=== PATIENT | male | born 1985 | race Caucasian/White ===

== ENCOUNTER 2024-03-19 15:22 | Emergency (ER) | payer SELFPAY ==
[2024-03-19 15:30] VITALS: BP 124/80; PULSE 85; RESP 16; TEMP 36.3; O2SAT 97
[2024-03-19 15:40] VITALS: BP 124/80; PULSE 85; RESP 16; TEMP 36.3; O2SAT 97
--- NOTE | 2024-03-19 15:40 | ED.GENADULT ---
HPI - General Adult General Chief complaint: Dental/Oral Stated complaint: Sore Throat/Mouth Sore Time Seen by Provider: 03/19/24 15:41 Source: patient Mode of arrival: ambulatory Limitations: no limitations History of Present Illness HPI narrative: 38 yo M presents with c/o nasal congestion, soreness to nares, PND, mild cough for 2 to 3 days. Afebrile. Pt was recently released from retirement. Per pt the drinking water and water to wash hands came from a faucet that was also connected to the toilet. While pt was getting drinking water, it sprayed in his face and up his nose and hes concerned dirty toilet water is causing his sinus symptoms. Also states while looking in mirror today he noticed bump to roof of mouth. pt is a current everyday smoker. All systems reviewed and negative except as noted above. Related Data Allergies Allergy/AdvReac Type Severity Reaction Status Date / Time Penicillins Allergy Mild Unknown Verified 03/19/24 15:27 Review of Systems Review of Systems: CONSTITUTIONAL: Denies fever, chills, or sweats. EYES: Denies visual changes, redness, or discharge. ENT: Reports rhinorrhea, congestion. Denies sore throat, or otalgia. Reports sore to roof of mouth. CARDIOVASCULAR: Denies chest pain, palpitations, or edema. RESPIRATORY: Reports cough. Denies dyspnea. GASTROINTESTINAL: Denies abdominal pain, nausea, vomiting, or diarrhea. GENITOURINARY: Denies dysuria or hematuria. SKIN: Denies rash or itching. MUSCULOSKELETAL: Denies back pain, joint pain, or myalgia. NEUROLOGIC: Denies headache, numbness, or weakness. PSYCHIATRIC: Denies anxiety or depression. All other systems reviewed are negative, except as documented in HPI. PMFSH Comments At time of signature, agree with nursing past medical, surgical, social and family history. There is no relevant family history pertinent to the presenting complaint. Exam Narrative: GENERAL: This is a well-nourished, well-developed patient, in no apparent distress. HEAD: normocephalic, atraumatic. EYES: PERRL. Sclera clear/white. Vision is grossly intact. EARS: External ears normal, auditory canals clear and without drainage, TMs normal without perforation. Hearing grossly intact. NOSE: External nose normal with clear nasal drainage, mild congestion THROAT: Mucous membranes moist, clear postnasal drainage MOUTH: there is a hard swollen area to roof of mouth, approx. 1cm diameter with mild erythema. no fluctuance. no tenderness on palpation. NECK: Neck supple, non-tender without lymphadenopathy, masses or thyromegaly. CARDIOVASCULAR: Regular rate and rhythm without murmurs, gallops, or rubs. RESPIRATORY: Clear to auscultation. Breath sounds equal bilaterally. No wheezes, rales, or rhonchi. SKIN: warm, Dry, intact with no suspicious lesions or rash, good texture and turgor. NEURO: awake, alert, and oriented to person, place and time. There were no obvious focal neurologic abnormalities. EXTREMITIES: No joint tenderness, effusion, or edema noted. Course Course Level of Care: Express Care Visit Vital Signs Vital signs: Vital Signs Temperature 36.3 C L 03/19/24 15:30 Pulse Rate 85 03/19/24 15:30 Respiratory Rate 16 03/19/24 15:30 Blood Pressure 124/80 03/19/24 15:30 Pulse Oximetry 97 03/19/24 15:30 Oxygen Delivery Room Air 03/19/24 15:30 Temperature 36.3 C L 03/19/24 15:40 Pulse Rate 85 03/19/24 15:40 Respiratory Rate 16 03/19/24 15:40 Blood Pressure 124/80 03/19/24 15:40 Pulse Oximetry 97 03/19/24 15:40 Oxygen Delivery Room Air 03/19/24 15:40 reviewed Medical Decision Making MDM Narrative Medical decision making narrative: Patient is aware of diagnosis, understands and agrees to treatment plan. Anticipatory guidance given. Patient agrees to follow-up as directed and is aware of reasons to seek care at the emergency department. Portions of this record may have been created with voice recognition software will treat pt with abx due to concern for dirty toilet water. recommend pt follow up with his PCP if sore to roof of mouth is not improving. Vital Signs Vital Signs: Vital Signs Temperature 36.3 C L 03/19/24 15:30 Pulse Rate 85 03/19/24 15:30 Respiratory Rate 16 03/19/24 15:30 Blood Pressure 124/80 03/19/24 15:30 Pulse Oximetry 97 03/19/24 15:30 Oxygen Delivery Room Air 03/19/24 15:30 Temperature 36.3 C L 03/19/24 15:40 Pulse Rate 85 03/19/24 15:40 Respiratory Rate 16 03/19/24 15:40 Blood Pressure 124/80 03/19/24 15:40 Pulse Oximetry 97 03/19/24 15:40 Oxygen Delivery Room Air 03/19/24 15:40 reviewed Discharge Plan Discharge Clinical Impression: Acute rhinosinusitis, Mouth sore Patient Disposition: Home, Self-Care Condition: Stable Instructions: Antibiotic Form, Sinusitis (ED) Additional Instructions: Take antibiotic as prescribed until gone. Start [id number] medications to treat symptoms such as DayQuil NyQuil cold and Sinus. Take Tylenol or ibuprofen every 6-8 hours as needed for pain and fever. follow-up with your primary care physician if sore/lesion to roof of mouth not improving. Prescriptions: New clindamycin HCl 300 mg capsule 300 mg PO Q8H 10 Days Qty: 30 0RF Follow-up/Referrals: UNKNOWN,DOCTOR [Primary Care Provider] - Time of Disposition: 15:54
== END 2024-03-19 15:58 | disposition home or self-care (01) ==
PROVIDERS: Emergency Provider Nurse Practitioner Family
DX: J01.90 Acute sinusitis, unspecified (principal); K13.79 Other lesions of oral mucosa
CPT/HCPCS: 99203; G0463